=== PATIENT | male | born 1935 | race Caucasian/White ===

== ENCOUNTER 2017-04-02 11:46 | Inpatient (IN) | payer MEDICARE ==
[~2017-04-02] VITALS: Ht 172.7 cm; Wt 75.4 kg
[~2017-04-02 11:46] MED LIST: AEC81 PO; ATOR10 PO; FOLI0.4T2 PO; METF10004 PO
[2017-04-02 12:09] LABS: APPEARANCE,URINE Clear (CLEAR); BILIRUBIN,URINE Negative (NEGATIVE); COLOR,URINE Yellow (YELLOW); GLUCOSE, URINE (UA) Negative (NEGATIVE); KETONES,URINE Negative (NEGATIVE); LEUKOCYTE ESTERASE ,URINE Negative (NEGATIVE); NITRATE,URINE Negative (NEGATIVE); OCCULT BLOOD,URINE Negative (NEGATIVE); PROTEIN,URINE Negative (NEGATIVE)
[2017-04-02 12:23] LABS: BASOPHILS % (AUTO) 0.4 % (0.0-5.0); EOSINOPHILS % (AUTO) 1.8 % (0.0-8.0); HEMATOCRIT 44.2 % (42-54); LYMPHOCYTES % (AUTO) 12.6 % (21.0-51.0); MEAN CORPUSCULAR HEMOGLOBIN 29.4 pg (27.0-33.0); MEAN CORPUSCULAR HGB CONC 33.4 g/dL (32.0-36.0); MEAN CORPUSCULAR VOLUME 87.9 fL (79-99); MONOCYTES % (AUTO) 6.2 % (3.0-13.0); PLATELET COUNT (AUTO) 175 K/uL (130-400); RED BLOOD CELL COUNT(AUTO) 5.03 MIL/uL (4.50-6.20); RED CELL DISTRIBUTION WIDTH 14.1 % (11.0-15.5); WHITE BLOOD COUNT (AUTO) 9.8 K/uL (4.8-10.8)
[2017-04-02 12:34] LABS: CREATININE 1.2 mg/dL (0.5-1.5); POTASSIUM 4.1 mmol/L (3.5-5.1)
[2017-04-02 12:38] LABS: ALBUMIN 3.7 g/dL (3.5-5.0); BILIRUBIN,TOTAL 0.6 mg/dL (0.2-1.0); TOTAL PROTEIN, SERUM 7.9 g/dL (6.0-8.3)
[2017-04-02] MEDS: SODIUM CHLORIDE 0.9% 1000ML 1,000 ML IV SCH (14:46)
[2017-04-02] MEDS ORDERED: LIDOCAINE HCL-MPF 1% 2ML VIAL IVP PRN (15:00)
[2017-04-02] MEDS ORDERED: POTASSIUM CHLORIDE 20 MEQ ERTAB PO PRN (15:00)
[2017-04-02] MEDS ORDERED: POTASSIUM CHLORIDE 20MEQ/100ML 100 ML IV PRN (15:00)
[2017-04-02] MEDS ORDERED: ONDANSETRON HCL 4 MG/2 ML VIAL IV PRN (15:00)
[2017-04-02] MEDS ORDERED: MAG HYDROX/AL HYDROX/SIMETH ES 30 ML SUSP UDCUP PO PRN (15:00)
[2017-04-02] MEDS ORDERED: MORPHINE SULFATE 4 MG/1ML SYG IV PRN (15:00)
[2017-04-02] MEDS ORDERED: GUAIFENESIN-DM 200/20 MG 10 ML PO PRN (15:00)
[2017-04-02] MEDS ORDERED: LACTULOSE 20 GM/30 ML UDCUP PO PRN (15:00)
[2017-04-02] MEDS ORDERED: CEFTRIAXONE 1GM/D5W 50ML 50 ML IV SCH (15:00)
[2017-04-02] MEDS ORDERED: MORPHINE SULFATE 2 MG/ML 1ML SYG IV PRN (15:00)
[2017-04-02] MEDS ORDERED: ACETAMINOPHEN 325 MG TAB PO PRN ×2 (15:00)
[2017-04-02] MEDS ORDERED: NITROGLYCERIN 0.4 MG SL TAB SL PRN (15:00)
[2017-04-02] MEDS ORDERED: ACETAMINOPHEN-CODEINE 300/30MG TAB PO PRN ×2 (15:00)
[2017-04-02] MEDS ORDERED: POTASSIUM CHLORIDE 10% ELIXIR 20 MEQ/15 ML UDCUP PO PRN (15:00)
[2017-04-02] MEDS: METRONIDAZOLE 500MG/100ML BAG 100 ML IV SCH ×2 (15:00→23:17)
[2017-04-02] MEDS: CEFTRIAXONE SODIUM 1 GM IVP SCH (16:00)
[2017-04-02] MEDS: WATER FOR INJECTION,STERILE 5 ML VIAL INJ SCH (16:00)
[2017-04-02] MEDS ORDERED: SODIUM CHLORIDE 0.9% 1000ML 1,000 ML IV ONE (16:50)
[2017-04-02] MEDS ORDERED: METRONIDAZOLE 500MG/100ML BAG 100 ML ONE (16:51)
[2017-04-02] MEDS ORDERED: CEFTRIAXONE SODIUM 1 GM ONE (16:51)
[2017-04-02] MEDS ORDERED: FAMOTIDINE/PF 20 MG/2 ML VIAL IV ONE (22:03)
[2017-04-02 22:30] VITALS: BP 137/53
[2017-04-03 04:00] VITALS: BP 129/85
[2017-04-03 05:08] LABS: HEMATOCRIT 39.4 % (42-54); MEAN CORPUSCULAR HEMOGLOBIN 29.3 pg (27.0-33.0); MEAN CORPUSCULAR HGB CONC 33.5 g/dL (32.0-36.0); MEAN CORPUSCULAR VOLUME 87.3 fL (79-99); PLATELET COUNT (AUTO) 146 K/uL (130-400); RED BLOOD CELL COUNT(AUTO) 4.51 MIL/uL (4.50-6.20)
[2017-04-03 05:22] LABS: CREATININE 1.1 mg/dL (0.5-1.5); POTASSIUM 3.9 mmol/L (3.5-5.1)
[2017-04-03 05:25] LABS: INR 0.97 (0.85-1.15); PROTHROMBIN TIME 10.2 SEC (9.6-11.6)
[2017-04-03 06:02] LABS: HEMOGLOBIN A1C 6.1 % (4.0-6.0)
[2017-04-03] MEDS: SODIUM CHLORIDE 0.9% 1000ML 1,000 ML IV SCH ×2 (06:17→23:40)
[2017-04-03] MEDS: METRONIDAZOLE 500MG/100ML BAG 100 ML IV SCH ×3 (06:17→22:53)
[2017-04-03 08:00] VITALS: BP 161/74
[2017-04-03] MEDS: FAMOTIDINE/PF 20 MG/2 ML VIAL IV SCH (08:20)
[2017-04-03 12:29] VITALS: BP 160/72
[2017-04-03] MEDS: CEFTRIAXONE SODIUM 1 GM IVP SCH (15:29)
[2017-04-03] MEDS: WATER FOR INJECTION,STERILE 5 ML VIAL INJ SCH (15:29)
[2017-04-03 16:00] VITALS: BP 158/70
[2017-04-03 19:52] VITALS: BP 156/74
[2017-04-03] MEDS: ATORVASTATIN CALCIUM 10 MG TABLET PO SCH (20:55)
[2017-04-03 23:52] VITALS: BP 148/66
[2017-04-04 04:00] VITALS: BP 156/74
[2017-04-04 05:47] LABS: CREATININE 1.2 mg/dL (0.5-1.5); POTASSIUM 4.2 mmol/L (3.5-5.1)
[2017-04-04] MEDS: METRONIDAZOLE 500MG/100ML BAG 100 ML IV SCH ×3 (06:20→22:37)
[2017-04-04 08:00] VITALS: BP 148/71
[2017-04-04] MEDS: ASPIRIN 81 MG EC TAB PO SCH (08:50)
[2017-04-04] MEDS: FAMOTIDINE/PF 20 MG/2 ML VIAL IV SCH (08:50)
[2017-04-04 11:00] VITALS: BP 149/65
[2017-04-04 16:00] VITALS: BP 136/77
[2017-04-04] MEDS: CEFTRIAXONE SODIUM 1 GM IVP SCH (16:01)
[2017-04-04] MEDS: WATER FOR INJECTION,STERILE 5 ML VIAL INJ SCH (16:02)
[2017-04-04] MEDS: SODIUM CHLORIDE 0.9% 1000ML 1,000 ML IV SCH (18:37)
[2017-04-04] MEDS: ATORVASTATIN CALCIUM 10 MG TABLET PO SCH (20:16)
[2017-04-04] MEDS: METFORMIN HCL 500 MG TABLET PO SCH (20:17)
[2017-04-04 20:22] VITALS: BP 175/80
[2017-04-04] MEDS: HYDRALAZINE HCL 20 MG/ML VIAL IV PRN (20:47)
[2017-04-05] VITALS (27 sets, daily range): BP systolic 116–162; BP diastolic 53–100
[2017-04-05 05:47] LABS: CREATININE 1.1 mg/dL (0.5-1.5)
[2017-04-05] MEDS: METRONIDAZOLE 500MG/100ML BAG 100 ML IV SCH ×2 (06:18→15:00)
[2017-04-05] MEDS: ASPIRIN 81 MG EC TAB PO SCH (09:00)
[2017-04-05] MEDS: FAMOTIDINE/PF 20 MG/2 ML VIAL IV SCH (09:11)
[2017-04-05] MEDS: HYDRALAZINE HCL 20 MG/ML VIAL IV PRN (11:14)
[2017-04-05] MEDS ORDERED: BUPIVACAINE/PF 0.5% 30ML VIAL ONE (11:54)
[2017-04-05] MEDS ORDERED: LIDOCAINE PF 2% 5ML ABBOJECT ONE (12:15)
[2017-04-05] MEDS ORDERED: GLYCOPYRROLATE 0.2 MG/ML 5 ML VIAL ONE (12:15)
[2017-04-05] MEDS ORDERED: ONDANSETRON HCL 4 MG/2 ML VIAL ONE (12:15)
[2017-04-05] MEDS ORDERED: NEOSTIGMINE METHYLSULFATE 1MG/ML IV ONE (12:15)
[2017-04-05] MEDS ORDERED: PROPOFOL 10 MG/ML 20ML VIAL IV ONE (12:16)
[2017-04-05] MEDS ORDERED: ROCURONIUM BROMIDE 10MG/1ML 5ML VL ONE (12:16)
[2017-04-05] MEDS ORDERED: FENTANYL CITRATE PF 50 MCG/1 ML 2ML VIAL ONE (12:16)
[2017-04-05] MEDS ORDERED: DEXAMETHASONE SOD PHOSPHATE 10MG/ML 1ML VIAL ONE (12:20)
[2017-04-05] MEDS ORDERED: ESMOLOL HCL 10 MG/ML 10 ML VIAL ONE (13:22)
[2017-04-05] MEDS ORDERED: CEFAZOLIN SODIUM 1 GM VIAL ONE (13:24)
[2017-04-05] MEDS: WATER FOR INJECTION,STERILE 5 ML VIAL INJ SCH (15:24)
[2017-04-05] MEDS: CEFTRIAXONE SODIUM 1 GM IVP SCH (15:24)
[2017-04-05] MEDS ORDERED: ACETAMINOPHEN-CODEINE 300/30MG TAB PO PRN (15:30)
[2017-04-05] MEDS: METFORMIN HCL 500 MG TABLET PO SCH (20:30)
[2017-04-05] MEDS: ATORVASTATIN CALCIUM 10 MG TABLET PO SCH (20:31)
[2017-04-05] MEDS: SODIUM CHLORIDE 0.9% 1000ML 1,000 ML IV SCH (20:32)
[2017-04-06] MEDS: SODIUM CHLORIDE 0.9% 1000ML 1,000 ML IV SCH (02:12)
[2017-04-06 03:00] VITALS: BP 122/59
[2017-04-06 05:38] LABS: HEMATOCRIT 39.2 % (42-54); MEAN CORPUSCULAR HEMOGLOBIN 30.1 pg (27.0-33.0); MEAN CORPUSCULAR VOLUME 88.3 fL (79-99); PLATELET COUNT (AUTO) 171 K/uL (130-400); RED BLOOD CELL COUNT(AUTO) 4.43 MIL/uL (4.50-6.20); RED CELL DISTRIBUTION WIDTH 14.2 % (11.0-15.5); WHITE BLOOD COUNT (AUTO) 10.8 K/uL (4.8-10.8)
[2017-04-06 05:45] LABS: CREATININE 1.3 mg/dL (0.5-1.5); POTASSIUM 4.3 mmol/L (3.5-5.1)
[2017-04-06 07:34] VITALS: BP 144/65
[2017-04-06] MEDS: FAMOTIDINE/PF 20 MG/2 ML VIAL IV SCH (09:03)
[2017-04-06] MEDS: ASPIRIN 81 MG EC TAB PO SCH (09:03)
[2017-04-06 11:22] VITALS: BP 131/69
== END 2017-04-06 12:19 | disposition home or self-care (01) | DRG 419 ==
LOC: EDH 11:46 → OBSVTOIN 14:46 → EDHIP 14:46 → 4BH 22:21
PROVIDERS: ADMIT Internal Medicine; ATTEND Internal Medicine
PROC: 0FT44ZZ Resection of Gallbladder, Percutaneous Endoscopic Approach (ICD-10-PCS; principal; 2017-04-05 12:48)
DX: K80.00 Calculus of gallbladder with acute cholecystitis without obstruction (principal); E11.51 Type 2 diabetes mellitus with diabetic peripheral angiopathy without gangrene; E86.0 Dehydration; I10 Essential (primary) hypertension; E78.5 Hyperlipidemia, unspecified; K74.60 Unspecified cirrhosis of liver; K82.8 Other specified diseases of gallbladder; Z85.528 Personal history of other malignant neoplasm of kidney; Z86.79 Personal history of other diseases of the circulatory system; Z87.891 Personal history of nicotine dependence; Z90.5 Acquired absence of kidney
CPT/HCPCS: 36415; 74176; 76705; 80048; 80053; 81003; 83036; 83690; 85025; 85027; 85610; 88304; J0360; J0690; J0696; J1100; J2001; J2405; J2704; J2710; J3010; J3490; J7030

== ENCOUNTER → 2018-10-06 | Outpatient (CLI) | payer MEDICARE ==
[~2018-10-06] MED LIST changes: -FOLI0.4T2 PO; +METF-446 PO; -METF10004 PO
== END | disposition home or self-care (01) ==
LOC: SHCH 09:04
PROVIDERS: ATTEND Internal Medicine Cardiovascular Disease
DX: I71.4 Abdominal aortic aneurysm, without rupture (principal)
CPT/HCPCS: 93978

== ENCOUNTER → 2018-11-14 | Outpatient (CLI) | payer MEDICARE ==
[~2018-11-14] MED LIST changes: -AEC81 PO; +ASPI-1197 PO; -ATOR10 PO; +ERGO500014 PO; +MELO-108 PO; -METF-446 PO; +TYL3 PO
== END | disposition home or self-care (01) ==
LOC: SHCH 08:09
PROVIDERS: ATTEND Internal Medicine Cardiovascular Disease
DX: I87.2 Venous insufficiency (chronic) (peripheral) (principal)
CPT/HCPCS: 93975

== ENCOUNTER 2018-12-30 05:44 | Day surgery (SDC) | payer MEDICARE ==
[2018-12-28 15:00] LABS: EOSINOPHILS % (AUTO) 4.7 % (0.0-8.0); HEMATOCRIT 30.9 % (42-54); LYMPHOCYTES % (AUTO) 12.1 % (21.0-51.0); MEAN CORPUSCULAR HGB CONC 31.7 g/dL (32.0-36.0); MEAN CORPUSCULAR VOLUME 82.1 fL (79-99); MONOCYTES % (AUTO) 8.4 % (3.0-13.0); NEUTROPHILS % (AUTO) 73.8 % (40.0-77.0); PLATELET COUNT (AUTO) 400 K/uL (130-400); RED BLOOD CELL COUNT(AUTO) 3.77 MIL/uL (4.50-6.20); RED CELL DISTRIBUTION WIDTH 18.5 % (11.0-15.5); WHITE BLOOD COUNT (AUTO) 10.8 K/uL (4.8-10.8)
[2018-12-28 15:10] VITALS: BP 126/50
[2018-12-28 15:10] LABS: CREATININE 0.9 mg/dL (0.5-1.5); POTASSIUM 4.2 mmol/L (3.5-5.1)
[2018-12-28 15:11] LABS: INR 1.08 (0.85-1.15); PROTHROMBIN TIME 11.3 SEC (9.6-11.6)
[2018-12-28 15:27] LABS: PARTIAL THROMBOPLASTIN TIME 31.6 SEC (26.3-35.5)
[2018-12-28 15:30] LABS: APPEARANCE,URINE Clear (CLEAR); BILIRUBIN,URINE Negative (NEGATIVE); COLOR,URINE Yellow (YELLOW); GLUCOSE, URINE (UA) Negative (NEGATIVE); KETONES,URINE Negative (NEGATIVE); LEUKOCYTE ESTERASE ,URINE Negative (NEGATIVE); NITRATE,URINE Negative (NEGATIVE); OCCULT BLOOD,URINE Negative (NEGATIVE); PH,URINE 6.5 (5.0-8.0); PROTEIN,URINE POS 1+ mg/dL (NEGATIVE)
[2018-12-28 16:00] LABS: BACTERIA,URINE Rare /HPF (None Seen); MUCUS,URINE Moderate LPF (None Seen); RBC,URINE 0-1 /HPF (0-1); SQUAMOUS EPITHELIAL CELL,UR 0-2 /HPF (0-2)
[~2018-12-30] VITALS: Ht 168.9 cm; Wt 60.8 kg
[2018-12-30] VITALS (25 sets, daily range): BP systolic 112–160; BP diastolic 53–81
[~2018-12-30 05:44] MED LIST changes: +ACET-2743 PO; +ASPI-1181 PO; -ASPI-1197 PO; +ATOR20TA65 PO; +FAMO40TA7 PO; -MELO-108 PO; -TYL3 PO; +iron PO
[2018-12-30] MEDS: SODIUM CHLORIDE 0.9% 1000ML 1,000 ML IV ONE (07:20)
[2018-12-30] MEDS ORDERED: NITROGLYCERIN 5 MG/ML 10 ML VIAL IV ONE ×2 (09:20→09:26)
[2018-12-30] MEDS ORDERED: HEPARIN SODIUM 1000UNIT/ML 10ML VIAL ONE ×2 (09:20→09:26)
[2018-12-30] MEDS ORDERED: LIDOCAINE HCL 2% 20ML ONE ×2 (09:20→09:27)
[2018-12-30] MEDS ORDERED: SODIUM BICARB 50MEQ 50ML VIAL ONE ×2 (09:20→09:26)
[2018-12-30] MEDS ORDERED: IODIXANOL 320 MG/ML 100 ML VIAL ONE ×2 (09:20→09:26)
[2018-12-30] MEDS ORDERED: MIDAZOLAM HCL 1 MG/ML 2ML VIAL ONE ×3 (09:26→09:56)
[2018-12-30] MEDS ORDERED: MEPERIDINE-PF 25 MG/ML SYG ONE ×2 (09:26→09:56)
[2018-12-30] MEDS ORDERED: FENTANYL CITRATE PF 50 MCG/1 ML 2ML VIAL ONE (09:54)
[2018-12-30] MEDS ORDERED: SODIUM CHLORIDE 0.9% 1000ML 1,000 ML IV SCH (10:31)
== END 2018-12-30 18:10 | disposition home or self-care (01) ==
LOC: DAH 05:44
PROVIDERS: ATTEND Internal Medicine Cardiovascular Disease
DX: K55.059 Acute (reversible) ischemia of intestine, part and extent unspecified (principal); K55.1 Chronic vascular disorders of intestine; I73.9 Peripheral vascular disease, unspecified; J44.9 Chronic obstructive pulmonary disease, unspecified; M19.90 Unspecified osteoarthritis, unspecified site; F17.210 Nicotine dependence, cigarettes, uncomplicated; Z79.82 Long term (current) use of aspirin; Z98.890 Other specified postprocedural states; Z79.899 Other long term (current) drug therapy; Z85.528 Personal history of other malignant neoplasm of kidney; Z85.118 Personal history of other malignant neoplasm of bronchus and lung; Z90.5 Acquired absence of kidney; Z83.3 Family history of diabetes mellitus
CPT/HCPCS: 36245; 36415 ×2; 37236; 71045; 75726 ×2; 80048; 81001; 82948; 85025; 85610; 85730 ×2; 93005; A4215; A4216; A4221; A4222; A4223 ×2; A4606; C1769 ×2; C1876; C1887; C1894; J1644 ×2; J2175; J2250 ×2; J3010; J3490 ×4; J7030; Q9967; 75774; 99156; 99157

== ENCOUNTER → 2019-01-25 | Outpatient (CLI) | payer MEDICARE | END | disposition home or self-care (01) | LOC: RAH 09:29 | PROVIDERS: ATTEND Internal Medicine Cardiovascular Disease | DX: I70.293 Other atherosclerosis of native arteries of extremities, bilateral legs (principal); I87.2 Venous insufficiency (chronic) (peripheral); I71.9 Aortic aneurysm of unspecified site, without rupture | CPT/HCPCS: 76775; 93925 ==